=== PATIENT | female | born 1945 | race Caucasian/White ===

== ENCOUNTER 2024-11-11 00:24 | Emergency (ER) | payer MEDICARE ==
[~2024-11-11] VITALS: Ht 162.6 cm; Wt 86.5 kg
[2024-11-11 00:44] VITALS: TEMP 96
[2024-11-11 00:58] LABS: VENOUS BASE EXCESS 0.3 (-2.0-2.0); VENOUS HCO3 26.5 MMOL/L (23.0-27.0); VENOUS O2 SATURATION 86.4 % (60.0-80.0); VENOUS PARTIAL PRESSURE CO2 48.6 mmHg (38.0-50.0); VENOUS PARTIAL PRESSURE O2 55.2 mmHg (30.0-50.0); VENOUS PH 7.354 UNITS (7.330-7.430); VENOUS STANDARD HCO3 24.4 MMOL/L; VENOUS TOTAL CO2 28.0 MMOL/L (24.0-28.0)
[2024-11-11 01:01] LABS: BASO # 0.1 10^3/uL (0.0-0.2); BASO % 0.7 % (0.0-1.0); EOS # 0.3 10^3/uL (0.0-0.5); EOS % 2.3 % (0.0-3.0); LYMPH # 2.7 10^3/uL (1.5-5.0); LYMPH % 25.4 % (24.0-44.0); MONO # 0.7 10^3/uL (0.0-0.8); MONO % 6.9 % (2.0-8.0); NEUTROPHILS # 6.9 10^3/uL (1.5-8.5); NEUTROPHILS % 64.3 % (36.0-66.0); PLATELET COUNT, AUTOMATED 195 10^3/uL (150-450)
[2024-11-11] MEDS: NITROGLYCERIN 0.4 MG SUBL TABLET SL PRN (01:25)
[2024-11-11] MEDS: ASPIRIN 81 MG CHEWABLE TABLET PO ONE (01:25)
[2024-11-11 01:32] VITALS: BP 163/73
[2024-11-11 01:35] LABS: ALT/SGPT 29.0 U/L (7.0-40); AST/SGOT 28.0 U/L (<34); CALCIUM LEVEL 9.1 MG/DL (8.3-10.6); CARBON DIOXIDE LEVEL 29.0 MMOL/L (20-31); CHLORIDE LEVEL 104.0 MMOL/L (98-107); CK-MB VALUE MASS 1.6 NG/ML (<3.6); CREATININE FOR GFR 0.95 MG/DL (0.55-1.30); GLOMERULAR FILTRATION RATE 61.3 (>39); POTASSIUM SERUM 4.1 MMOL/L (3.5-5.1); SODIUM LEVEL 145.0 MMOL/L (136-145)
[2024-11-11] MEDS: PANTOPRAZOLE 40MG VIAL IV ONE (01:43)
[2024-11-11] MEDS: ONDANSETRON 4MG 2ML VIAL IV ONE (01:43)
[2024-11-11 02:07] LABS: CPK CREATINE PHOSPHOKINASE 67.0 U/L (34-145); MB/CK RELATIVE INDEX 2.38 (< OR =4)
[2024-11-11 02:57] LABS: CK-MB VALUE MASS 1.1 NG/ML (<3.6)
[2024-11-11 03:08] LABS: CPK CREATINE PHOSPHOKINASE 54.0 U/L (34-145); MB/CK RELATIVE INDEX 2.03 (< OR =4)
[2024-11-11 03:45] VITALS: BP 122/59; O2SAT 95
== END 2024-11-11 04:00 | disposition home or self-care (01) ==
LOC: M ED 00:24
DX: R07.9 Chest pain, unspecified (principal); I10 Essential (primary) hypertension; E78.5 Hyperlipidemia, unspecified; J44.9 Chronic obstructive pulmonary disease, unspecified; C50.919 Malignant neoplasm of unspecified site of unspecified female breast; Z86.79 Personal history of other diseases of the circulatory system; Z88.0 Allergy status to penicillin; Z88.2 Allergy status to sulfonamides; Z88.8 Allergy status to other drugs, medicaments and biological substances
CPT/HCPCS: 71045; 76705; 80048; 80076; 82550; 82553; 82803; 83690; 83880; 84443; 84484; 85025; 87486; 87581; 87633; 87798; 93005; 93041; 94760; 96374; 99285; J2405; J2470